=== PATIENT | male | born 1960 | race Caucasian/White ===

== ENCOUNTER 2017-04-30 09:55 | Emergency (ER) | payer OTHER ==
[~2017-04-30] VITALS: Ht 182.9 cm; Wt 111.4 kg
[~2017-04-30 09:55] MED LIST: /MESA40TAB PO; /PANT40TA PO; /QUET10TA OR; AMLO10TA2 PO; ASPI1TAB PO; ASPI81TA85 PO; ATIV1TAB2 OR; ATOR1TAB21 PO; AUGM875T27 PO; Albuterol Inhaler INH; BACIDCA PO; CARV25TA PO; CELE20TA PO; CHLO25TA3 PO; CIPR500T89 PO; DRIS50002 PO; Depakote PO; FISH1000 PO; FLAG500T PO; IRBE300T10 PO; KLON2TAB PO; MULTTAB4 PO; NEOSOIN TOP; NEXI20CA OR; OMEP40CA2 PO; Oxycodone OR; PERC5TAB12 PO; PERC7.5T12 PO; PERCOCET PO; PRIL40CA PO; SERO200T OR; SPIR25TA2 PO; Seroquel OR; TRAZ50TA OR; TYLE325T5 PO; VALI5TAB OR; VITA10002 PO; VITMTA PO
[2017-04-30] MEDS ORDERED: CARV25TA PO (10:05)
[2017-04-30] MEDS ORDERED: MORPHINE 4 MG/ML 1ML SYRINGE IV ONE (11:00)
[2017-04-30] MEDS ORDERED: NS 1,000 ML IV ONE (11:00)
[2017-04-30] MEDS ORDERED: ONDANSETRON 4MG/2ML VIAL (J2405) IV ONE (11:00)
[2017-04-30 11:30] LABS: BASO # 0.1 K/mm3 (0.0-0.2); BASO % 0.6 % (0.0-1.0); EOS # 0.3 K/mm3 (0.0-0.50); EOS % 2.2 % (0.0-3.0); LARGE UNSTAINED CELL # 0.3 K/mm3 (0.0-0.4); LARGE UNSTAINED CELL % 2.7 % (0.0-4.0); LYMPH # 3.5 K/mm3 (1.5-4.5); MEAN CORPUSCULAR HEMOGLOBIN 30.4 pg (27.0-33.0); MEAN CORPUSCULAR HGB CONC 35.3 g/dl (32.0-36.5); MEAN CORPUSCULAR VOLUME 86.3 fl (80.0-96.0); MONO % 8.6 % (0.0-5.0); PLATELET COUNT, AUTOMATED 191 k/mm3 (150-450); RED CELL DISTRIBUTION WIDTH 13.9 % (11.5-14.5); WHITE BLOOD COUNT 11.9 K/mm3 (4.0-10.0)
[2017-04-30 11:52] LABS: ALBUMIN 4.3 GM/DL (3.2-5.2); ALBUMIN/GLOBULIN RATIO 1.02 (1.00-1.93); ALKALINE PHOSPHATASE 84 U/L (45-117); ALT/SGPT 29 U/L (12-78); ANION GAP 7 MEQ/L (8-16); AST/SGOT 15 U/L (15-37); BILIRUBIN,DIRECT < 0.1 MG/DL (0.0-0.2); BILIRUBIN,TOTAL 0.4 MG/DL (0.2-1.0); BLOOD UREA NITROGEN 13 MG/DL (7-18); CALCIUM LEVEL 10.3 MG/DL (8.5-10.1); CARBON DIOXIDE LEVEL 27 MEQ/L (21-32); CHLORIDE LEVEL 105 MEQ/L (98-107); CREATININE FOR GFR 1.02 MG/DL (0.70-1.30); GLOMERULAR FILTRATION RATE > 60.0 (>56); GLUCOSE, FASTING 101 MG/DL (70-105); POTASSIUM SERUM 4.3 MEQ/L (3.5-5.1); SODIUM LEVEL 139 MEQ/L (136-145); TOTAL PROTEIN 8.5 GM/DL (6.4-8.2)
[2017-04-30] MEDS ORDERED: PROMETHAZINE INJ 25 MG/ML VIAL (J2550) IV ONE (12:15)
[2017-04-30] MEDS ORDERED: ISOVUE-370 76% 100ML VIAL (Q9967) As Ordered ONE (12:18)
--- NOTE | 2017-04-30 12:59 | REP ---
CT of the abdomen pelvis wall with IV contrast, without bowel contrast: Studies performed in continuity with the CT of the chest utilizing the same bolus of intravenous contrast. Comparison is 10/05/2013. There is no pneumoperitoneum or ascites. The hepatic parenchyma, gallbladder, pancreas and spleen are unremarkable. The adrenals, kidneys and abdominal aorta are unremarkable. There is no bowel distension. Pelvis: The the patient indicates he has an appendectomy. The bladder is unremarkable. The pelvic bowel loops demonstrate diverticulosis of the descending colon without diverticulitis. There is no adenopathy or ascites. There is multilevel degenerative disc disease in the lumbar spine. Impression: Descending colon diverticulosis without diverticulitis. Appendectomy. Multilevel degenerative disc disease in the lumbar spine. Otherwise, negative CT of the abdomen and pelvis. Signed by Miguel Samson MD 04/30/2017 12:50 P
--- NOTE | 2017-04-30 13:10 | REP ---
Lumbar spine series: Five views. History: Acute onset low back pain. Comparison study October 21, 2012. Findings: Lumbar vertebral body heights are preserved. There is moderate degenerative disc disease diffusely throughout the visualized thoracic and lumbar levels. Vacuum phenomenon is present at L4-5 disc level. Degenerative disc changes are more pronounced than on the 2013 prior study. Vascular calcification is seen in the abdominal aorta. No aneurysm is seen. Psoas margins are symmetric. Sacrum and SI joints are intact. There is no evidence of spondylolysis or spondylolisthesis. There is bilateral osteoarthritic facet disease at L5-S1 and to some degree at L4-5. No bony destructive lesion is seen. Impression: Diffuse moderate degenerative disc disease. Some osteoarthritic facet changes. No acute abnormality. Signed by Sage Blackman MD 04/30/2017 03:53 P
--- NOTE | 2017-04-30 13:15 | REP ---
CT CHEST WITH IV CONTRAST: CT ANGIO CHEST: TECHNIQUE: Axial contrast enhanced images from the thoracic inlet to the upper abdomen using 100 mL Isovue 370 intravenous contrast material with multiplanar reformations. In the right upper lobe, there are three subcentimeter nodular opacities which are stable compared to 2013 exams and are therefore benign. No acute infiltrate is seen in either lung. There is no pneumothorax. There is no pleural or pericardial effusion. Heart is normal in size. No mediastinal or hilar adenopathy is seen. There is mild scattered atherosclerotic calcification of the thoracic aorta without aneurysm or dissection. There are degenerative changes of the spine without compression fracture. IMPRESSION: No thoracic aortic aneurysm or dissection. No acute pulmonary disease. Degenerative changes of the spine. Signed by Miguel Gao MD 04/30/2017 05:11 P
[2017-04-30 13:34] VITALS: BP 116/65
[2017-04-30] MEDS ORDERED: ROBA500T PO (13:47)
[2017-04-30] MEDS ORDERED: NORCOTAB PO (13:47)
--- NOTE | 2017-05-02 08:17 | ECGEPIP ---
Stationary ECG Study [facility] - ED Test Date: 2017-04-30 Pat Name: MONTANA HERNANDEZ Department: Room: - Gender: M Area [employer] Pilot: ct : 1960 Requested By: JENNIFER CHRISTIANSON PA-C. Order Number: [id number] Reading MD: Ghada Tran Measurements Intervals [place] Rate: 74 P: 37 [place]: 156 QRS: -4 QRSD: 91 T: 30 QT: 381 QTc: 425 Interpretive Statements SINUS RHYTHM INFERIOR MYOCARDIAL INFARCTION, PROBABLY OLD NSTTW ABNORMALITY DECREASED RATE 06/24/15 Electronically Signed On 05-02-2017 8:17:32 EDT by Ghada Tran
== END 2017-04-30 14:15 | disposition home or self-care (01) ==
LOC: M ED 10:58
DX: K57.30 Diverticulosis of large intestine without perforation or abscess without bleeding (principal); M51.36 Other intervertebral disc degeneration, lumbar region; G89.29 Other chronic pain; R10.9 Unspecified abdominal pain; F17.200 Nicotine dependence, unspecified, uncomplicated; Z79.899 Other long term (current) drug therapy; Z88.5 Allergy status to narcotic agent; Z88.8 Allergy status to other drugs, medicaments and biological substances; Z88.4 Allergy status to anesthetic agent
CPT/HCPCS: 36415; 71260; 72110; 74177; 80048; 80076; 83690; 85025; 85379; 93000; 96374; 96375; 99284; J2405; J3360; Q9967

== ENCOUNTER → 2020-06-28 | Outpatient (REF) | payer OTHER ==
[~2020-06-28] MED LIST changes: -/PANT40TA PO; -/QUET10TA OR; -ASPI1TAB PO; +ASPI81TA26 PO; -DRIS50002 PO; +DRIS50003 PO; +HYDR-3715 PO; -NEOSOIN TOP; +NEOSOIN2 TOP; -OMEP40CA2 PO; +OMEP40CA97 PO; +PROT1TAB2 PO; +ROBA500T PO; +SERO1TAB OR
== END ==
LOC: M LAB REF 15:11
PROVIDERS: ATTEND Dermatology
DX: D23.30 Other benign neoplasm of skin of unspecified part of face (principal)

== ENCOUNTER → 2020-11-28 | Outpatient (CLI) | payer OTHER ==
--- NOTE | 2020-11-28 16:02 | REP ---
INDICATION: CLAUDICATION. COMPARISON: None. TECHNIQUE: Bilateral lower extremity arterial Doppler ultrasound: FINDINGS: Ankle brachial indices are normal measured at 1.0 bilaterally. Biphasic and triphasic arterial Doppler waveforms are noted in the right leg and biphasic waveforms are noted throughout the left leg. No significant stenosis or occlusion is seen on either side. No significant plaquing is observed. Right lower extremity arterial Doppler velocity chart: Right DIRECTOR OF ELEMENTARY EDUCATION PSV 143 cm/S Profundal 205 Proximal SFA 168 Mid SFA 104 Distal SFA 100 Popliteal 66 Proximal MAKENZIE 76 Tibial-peroneal trunk 61 Proximal MINI LAB OPERATOR 64 Distal MINI LAB OPERATOR 69 Distal MAKENZIE 50 Left lower extremity arterial Doppler velocity chart: Left DIRECTOR OF [employer]LEMENT[employer] EDUCATION PSV 149 cm/S Profundal 159 Proximal SFA 131 Mid SFA 96 Distal SFA 106 Popliteal 69 Proximal MAKENZIE 69 Tibial-peroneal trunk 56 Proximal MINI LAB OPERATOR 59 Distal MINI LAB OPERATOR 58 Distal MAKENZIE 46 IMPRESSION: No significant stenosis or occlusion. <Electronically signed by Cornell Blackman > 11/28/20 2169
== END ==
LOC: M RAD 14:01
PROVIDERS: ATTEND Physician Assistant
DX: I70.213 Atherosclerosis of native arteries of extremities with intermittent claudication, bilateral legs (principal); I70.0 Atherosclerosis of aorta